=== PATIENT | male | born 1970 | race Caucasian/White ===

== ENCOUNTER 2024-07-17 07:53 | Outpatient (CLI) | payer OTHER ==
[2024-07-17 08:18] LABS: HEMATOCRIT 41.5 % (39.0-48.0); HEMOGLOBIN 14.7 g/dL (13-16.00); MEAN CELL VOLUME 87.2 fL (80.0-100.00); MEAN CORPUSCULAR HEMOGLOBIN 30.9 pg (27.00-32.0); MEAN CORPUSCULAR HGB CONC 35.5 g/dl (32.0-36.0); PLATELET COUNT 230 K/uL (150-450); RED BLOOD COUNT 4.76 M/uL (4.00-6.00); RED CELL DISTRIBUTION WIDTH 13.7 % (11.5-14.5)
[2024-07-17 08:48] LABS: URINE APPEARANCE Clear; URINE BILIRRUBIN Negative (NEGATIVE); URINE BLOOD Negative; URINE COLOR Dark Yellow; URINE GLUCOSE Negative (NEGATIVE); URINE KETONE Negative (NEGATIVE); URINE LEUKOCYTE Negative; URINE NITRATE Negative; URINE PROTEIN Negative (NEGATIVE)
[2024-07-17 08:53] LABS: URINE BACTERIA 103.2 uL (0.0-1933); URINE RBC 8.8 uL (0.0-20.8); URINE WBC 1.9 uL (0.0-23.2)
[2024-07-17 08:57] LABS: URINE EPITHELIAL CELLS 0.9 uL (0.0-38.8)
[2024-07-17 10:30] LABS: RH NEGATIVE
[2024-07-17 15:11] LABS: RAPID PLASMA REAGIN NONREACTIVE BY RPR (NONREACTIVE)
== END 2024-07-17 08:02 | disposition home or self-care (01) ==
LOC: LAB 07:53
DX: D64.9 Anemia, unspecified (principal); A53.9 Syphilis, unspecified; Z01.83 Encounter for blood typing; N39.0 Urinary tract infection, site not specified; J18.9 Pneumonia, unspecified organism

== ENCOUNTER → 2024-07-31 14:35 | Outpatient (CLI) | payer OTHER | END | disposition home or self-care (01) | LOC: LAB 07:59 | DX: N39.0 Urinary tract infection, site not specified (principal); R76.8 Other specified abnormal immunological findings in serum; A53.9 Syphilis, unspecified; Z01.83 Encounter for blood typing ==

== ENCOUNTER 2024-12-16 08:00 | Outpatient (CLI) | payer OTHER ==
[2024-12-16 09:18] LABS: URINE APPEARANCE Clear; URINE BILIRRUBIN Negative (NEGATIVE); URINE BLOOD Negative; URINE COLOR Yellow; URINE GLUCOSE Negative (NEGATIVE); URINE KETONE Negative (NEGATIVE); URINE LEUKOCYTE Negative; URINE NITRATE Negative; URINE PROTEIN Negative (NEGATIVE); URINE UROBILINOGEN 0.2 E.U./dl
[2024-12-16 09:39] LABS: URINE BACTERIA 2.4 uL (0.0-1933); URINE EPITHELIAL CELLS 0.1 uL (0.0-38.8); URINE RBC 1.7 uL (0.0-20.8); URINE WBC 0 uL (0.0-23.2)
[2024-12-16 10:19] LABS: ALBUMIN 4.1 gm/dL (3.4-5.0); BILIRUBIN TOTAL 0.73 mg/dL (0.3-1.2); CALCIUM 8.9 mg/dL (8.5-10.1); CHOL HDL RATIO 2.7 (0-5.0); CREATININE SERUM 0.81 mg/dL (0.70-1.30); GFR 99.68; GLOBULINA 2.6 G/DL (2.4-3.5); POTASSIUM 3.89 mEq/L (3.5-5.1); PROSTATIC SPECIFIC ANTIGEN 1.56 NG/ML (0.010-4.00); TOTAL PROTEIN 6.7 gm/dL (6.4-8.2); TSH 1.76 uIU/mL (0.358-3.74)
[2024-12-16 10:23] LABS: HEMATOCRIT 40.8 % (39.0-48.0); HEMOGLOBIN 14.7 g/dL (13-16.00); MEAN CELL VOLUME 86.8 fL (80.0-100.00); MEAN CORPUSCULAR HEMOGLOBIN 31.3 pg (27.00-32.0); PLATELET COUNT 214 K/uL (150-450); RED BLOOD COUNT 4.71 M/uL (4.00-6.00); RED CELL DISTRIBUTION WIDTH 12.9 % (11.5-14.5)
== END 2024-12-16 08:01 | disposition home or self-care (01) ==
LOC: LAB 08:00
PROVIDERS: ATTEND Internal Medicine
DX: I11.9 Hypertensive heart disease without heart failure (principal); E78.5 Hyperlipidemia, unspecified; E66.9 Obesity, unspecified; R00.1 Bradycardia, unspecified; I73.9 Peripheral vascular disease, unspecified; M70.60 Trochanteric bursitis, unspecified hip; Z13.228 Encounter for screening for other metabolic disorders; E55.9 Vitamin D deficiency, unspecified; E03.9 Hypothyroidism, unspecified

== ENCOUNTER 2025-02-18 13:09 | Outpatient (CLI) | payer OTHER | END 2025-02-18 13:13 | disposition home or self-care (01) | LOC: MRI 13:09 | PROVIDERS: ATTEND Physical Medicine & Rehabilitation Sports Medicine | DX: M25.552 Pain in left hip (principal); M70.62 Trochanteric bursitis, left hip | CPT/HCPCS: 73721 ==

== ENCOUNTER → 2025-06-05 09:11 | Outpatient (CLI) | payer OTHER ==
[2025-06-05 08:40] LABS: BASO % 0.7 % (0.1-1.2); EOS # 0.14 (0.04-0.54); EOS % 2.5 % (0.7-7.0); LYMPH # 1.94 (1.18-3.74); LYMPH % 34.3 % (19.3-53.1); MEAN PLATELET VOLUME 10.30 fl (9.4-12.4); MONO # 0.46 (0.24-0.82); MONO % 8.1 % (4.7-12.5); NEUT # 3.06 (1.56-6.13); NEUT % 54.0 % (34.0-71.1); RED CELL DISTRIBUTION WIDTH 12.6 % (11.6-14.4); URINE APPEARANCE Clear; URINE BILIRRUBIN Negative (NEGATIVE); URINE BLOOD Negative; URINE COLOR Yellow; URINE GLUCOSE Negative (NEGATIVE); URINE KETONE Negative (NEGATIVE); URINE LEUKOCYTE Negative; URINE NITRATE Negative; URINE PROTEIN Negative (NEGATIVE); URINE UROBILINOGEN 1.0 E.U./dl
[2025-06-05 08:43] LABS: URINE RBC 6.4 uL (0.0-20.8)
[2025-06-05 08:58] LABS: URINE BACTERIA 2.4 uL (0.0-1933); URINE CAST 0.00 uL (0.0-1.40); URINE EPITHELIAL CELLS 0.1 uL (0.0-38.8); URINE WBC 0.6 uL (0.0-23.2)
[2025-06-05 09:34] LABS: ALT/SGPT 51.0 U/L (12-78); AST/SGOT 35.0 U/L (15-37); BILIRUBIN TOTAL 0.88 mg/dL (0.3-1.2); BUN CREA RATIO 16.0 (7.0-25.0); CHOL HDL RATIO 2.7 (0-5.0); CREATININE SERUM 0.9 mg/dL (0.70-1.30); GFR 87.94; GLOBULINA 2.5 G/DL (2.4-3.5); GLUCOSE FASTING 101.0 mg/dL (65-100); HDL 61.0 mg/dl (40-60); LDL 82.0 mg/dl (0-130); OSMOLALITY SERUM 284.0 MOSM/KG (275-295); TSH 1.75 uIU/mL (0.358-3.74); VLDL 24.0 (0-39)
[2025-06-05 09:56] LABS: ob NEGATIVE (NEGATIVE)
== END | disposition home or self-care (01) ==
LOC: LAB 07:46
PROVIDERS: ATTEND Internal Medicine
DX: E55.9 Vitamin D deficiency, unspecified (principal); Z12.11 Encounter for screening for malignant neoplasm of colon; E03.9 Hypothyroidism, unspecified; E78.5 Hyperlipidemia, unspecified; E11.69 Type 2 diabetes mellitus with other specified complication; Z13.228 Encounter for screening for other metabolic disorders

== ENCOUNTER 2025-10-15 08:00 | Outpatient (CLI) | payer OTHER ==
[2025-10-16 08:48] LABS: BASO % 0.5 % (0.1-1.2); EOS # 0.14 (0.04-0.54); EOS % 2.5 % (0.7-7.0); LYMPH # 1.83 (1.18-3.74); LYMPH % 32.5 % (19.3-53.1); MEAN PLATELET VOLUME 10.40 fl (9.4-12.4); MONO # 0.58 (0.24-0.82); MONO % 10.3 % (4.7-12.5); NEUT # 3.04 (1.56-6.13); NEUT % 54.0 % (34.0-71.1); RED CELL DISTRIBUTION WIDTH 12.9 % (11.6-14.4); URINE APPEARANCE Clear; URINE BILIRRUBIN Negative (NEGATIVE); URINE BLOOD Negative; URINE COLOR Yellow; URINE GLUCOSE Negative (NEGATIVE); URINE KETONE Negative (NEGATIVE); URINE LEUKOCYTE Negative; URINE NITRATE Negative; URINE PROTEIN Negative (NEGATIVE); URINE UROBILINOGEN 1.0 E.U./dl
[2025-10-16 08:50] LABS: URINE RBC 3.0 uL (0.0-20.8)
[2025-10-16 08:52] LABS: URINE BACTERIA 1.2 uL (0.0-1933); URINE CAST 0.00 uL (0.0-1.40); URINE EPITHELIAL CELLS 0.1 uL (0.0-38.8); URINE WBC 0 uL (0.0-23.2)
[2025-10-16 09:02] LABS: ERYTHROCYTE SEDIMENTATION RATE < 1 mm/hr (0-20)
[2025-10-16 10:08] LABS: ALT/SGPT 49 U/L (12-78); AST/SGOT 31 U/L (15-37); BILIRUBIN TOTAL 0.71 mg/dL (0.3-1.2); BUN CREA RATIO 20 (7.0-25.0); CHOL HDL RATIO 2.9 (0-5.0); CREATININE SERUM 0.81 mg/dL (0.70-1.30); GFR 99.30; GLOBULINA 2.3 G/DL (2.4-3.5); GLUCOSE FASTING 104 mg/dL (65-100); HDL 51 mg/dl (40-60); LDL 65 mg/dl (0-130); OSMOLALITY SERUM 286 MOSM/KG (275-295); TSH 2.220 uIU/mL (0.358-3.74); VLDL 31 (0-39)
== END 2025-10-15 23:00 | disposition home or self-care (01) ==
LOC: LAB 08:00
PROVIDERS: ATTEND Internal Medicine
DX: E78.5 Hyperlipidemia, unspecified (principal); I11.9 Hypertensive heart disease without heart failure; Z11.3 Encounter for screening for infections with a predominantly sexual mode of transmission; E03.9 Hypothyroidism, unspecified